=== PATIENT | female | born 1985 | race Caucasian/White ===

== ENCOUNTER 2019-12-06 12:47 | Outpatient (CLI) | payer SELFPAY ==
[2019-12-06 13:04] LABS: Basophils % 0.2 % (0.1-2.0); Eosinophils % 0.1 % (0.1-12.0); Hematocrit 35.3 % (37.0-47.0); Hemoglobin 12.3 g/dL (12.2-16.2); Lymphocytes # 1.2 K/mm3 (0.7-4.5); Lymphocytes % 10.9 % (10-50); Mean Corpuscular HGB Conc 34.9 g/dL (31.8-35.4); Mean Corpuscular Hemoglobin 30.2 pg (27.0-31.2); Mean Corpuscular Volume 86.7 fl (81-99); Mean Platelet Volume 8.6 fl (7.4-10.4); Monocytes # 0.5 K/mm3 (0.1-1.0); Monocytes % 4.4 % (1.7-9.3); Neutrophils # 9.5 K/mm3 (1.8-7.8); Neutrophils % 84.4 % (37.0-80.0); Platelet Count 199 K/mm3 (142-424); Red Blood Count 4.08 M/mm3 (4.20-5.40); Red Cell Distribution Width 15.1 % (11.5-17.5); White Blood Count 11.3 K/mm3 (4.8-10.8)
[2019-12-06 14:34] VITALS: BP 133/81; PULSE 88; RESP 18; TEMP 36.8; O2SAT 99
[2019-12-06 15:05] VITALS: BP 127/76; PULSE 82; RESP 16; TEMP 36.8; O2SAT 100
== END 2019-12-06 15:08 | disposition home or self-care (01) ==
LOC: LAB 12:47 → INF 14:03
PROVIDERS: Visit Provider Obstetrics & Gynecology
DX: Z34.90 Encounter for supervision of normal pregnancy, unspecified, unspecified trimester (principal)
CPT/HCPCS: 36415; 85025; 96372; J2790

== ENCOUNTER 2020-01-04 22:59 | Inpatient (IN) ==
[2020-01-04 23:39] LABS: Basophils % 0.1 % (0.1-2.0); Eosinophils # 0.1 K/mm3 (0.0-0.4); Eosinophils % 0.4 % (0.1-12.0); Hematocrit 32.6 % (37.0-47.0); Hemoglobin 11.2 g/dL (12.2-16.2); Lymphocytes # 2.1 K/mm3 (0.7-4.5); Lymphocytes % 16.1 % (10-50); Mean Corpuscular HGB Conc 34.4 g/dL (31.8-35.4); Mean Corpuscular Volume 88.8 fl (81-99); Mean Platelet Volume 8.3 fl (7.4-10.4); Monocytes # 0.8 K/mm3 (0.1-1.0); Monocytes % 6.4 % (1.7-9.3); Neutrophils # 9.8 K/mm3 (1.8-7.8); Platelet Count 194 K/mm3 (142-424); Red Blood Count 3.67 M/mm3 (4.20-5.40); Red Cell Distribution Width 14.8 % (11.5-17.5); White Blood Count 12.8 K/mm3 (4.8-10.8)
[2020-01-04 23:48] LABS: Anion Gap 10.8 mEq/L (5-15); Calcium 8.7 mg/dl (8.4-10.2)
--- NOTE | 2020-01-05 | History & Physical Report ---
OB - H&P: HPI Antepartum - History of Present Illness Chief complaint: Vaginal bleeding and contractions History of present illness: She is a 34-year-old 7 para 6 who is approximately 19-1/2 weeks gestational age. She has had minimal care. She has had bleeding for a number of weeks and tonight passed a clot. I did an ultrasound and there is no fluid around the baby. The baby is in the breech presentation. On examination there is some blood in the vagina and her cervix is 3 cm 90% effaced. I can feel parts. I suspect that she has ruptured her membranes at some point in time and is now in active labor. We will give her fluids but I suspect she is going to go into labor and deliver this baby. [facility] History I have reviewed the patient's past medical history: Yes *Have you ever received a pneumonia vaccine?: No *Have you received a flu vaccine this season?: No - *Social History Smoking Status: Never smoker Alcohol Intake: never Substance Use Type: denies use *Occupational Status:: other *Travel in the last 8 weeks: None Family Hx:: No significant family history Review of Systems - Review of Systems Review of systems:: pertinent systems reviewed and negative unless documented below Meds Home Medications Medication Instructions Recorded Confirmed Type Vit No.129/Iron/Folic 1 each PO DAILY 12/06/19 12/06/19 History [ One Daily Tablet] Allergies Allergy/AdvReac Type Severity Reaction Status Date / Time No Known Allergies Allergy Verified 12/06/19 14:21 OB - H&P: Exam - Constitutional no acute distress - Routine HEENT Exam Head: Present: normocephalic Eye: Present: EOMI, PERRL ENT: Present: mucous membranes moist - Routine Neck Exam Present: supple, full ROM - Routine Respiratory Exam Absent: accessory muscle use (good air entry bilaterally), respiratory distress, wheezes, crackles - Routine Cardiovascular Exam Present: RRR. Absent: murmur - Routine Abdominal Exam Present: soft, normoactive bowel sounds. Absent: tenderness, distended, guarding - Routine Rectal Exam Patient deferred: visual exam, digital exam - Routine Exam Patient deferred: external exam, groin exam, perineal exam - Routine Extremities Exam Present: full ROM. Absent: cyanosis, edema - Routine Skin Exam Present: intact. Absent: cyanosis - Routine Neurological Exam Present: alert, oriented X3 - Routine Psychiatric Exam Present: normal affect OB - Results - Labs Labs: Short CBC 01/04/20 Range/Units 23:25 WBC 12.8 H (4.8-10.8) K/mm3 Hgb 11.2 L (12.2-16.2) g/dL Hct 32.6 L (37.0-47.0) % Plt Count 194 (142-424) K/mm3 BMP 01/04/20 23:25 Sodium 131 L Potassium 3.8 Chloride 100 Carbon Dioxide 24 BUN 7 Creatinine 0.60 Glucose 78 Calcium 8.7 OB - A/P Antepartum (1) Vaginal bleeding affecting early Current visit: Yes Status: Acute (2) Breech presentation Current visit: Yes Status: Acute (3) Oligohydramnios due to rupture of membranes Current visit: Yes Status: Acute (4) labor in second trimester Current visit: Yes Status: Acute - Additional Plan Plan: expectant management Additional Information:: I examined her and she was 3 cm dilated 90% effaced. There are parts that I can feel just beyond the cervix. The fetus is in the breech presentation. Ultrasound revealed no fluid around the baby and I suspect she has rupture membranes. I suspect she will deliver in the next few hours. She has a moderate amount of blood likely from cervical changes.
[2020-01-05 00:20] LABS: Microscopic, Urine URINE MICROSCOPIC (MICROSCOPIC)
[2020-01-05 00:26] LABS: Appearance,Urine CLEAR (Clear); Bilirubin,Urine Negative (Negative); Blood, Urine 3+ (Negative); Color,Urine RED (Yellow); Glucose,Urine (UA) Negative (Negative); Ketones,Urine Negative (Negative); Leukocyte Esterase,Urine 2+ (Negative); Protein,Urine TRACE (Negative); Urobilinogen,Urine 0.2 EU/dl (0.2)
[2020-01-05 00:33] LABS: RBC,Urine 50-100 #/hpf (0-3); WBC,Urine 20-50 #/hpf (0-3)
[2020-01-05 00:35] LABS: Barbiturates Screen,Urine Negative ng/ml (<200); Benzodiazepines Screen,Urine Negative ng/ml (<200)
[2020-01-05 00:36] LABS: Amphetamine/Metha Screen,Urine Negative ng/ml (<1000)
[2020-01-05 00:37] LABS: Cannabinoid Screen,Urine Negative ng/ml (<50); Cocaine Screen,Urine Negative ng/ml (<300)
[2020-01-05 00:38] LABS: Methadone Screen,Urine Negative ng/ml (<300); Opiate Screen,Urine Negative ng/ml (<300)
[2020-01-05 00:39] LABS: Phencyclidine Screen,Urine Negative ng/ml (<25)
--- NOTE | 2020-01-05 01:15 | Procedure Note ---
- Delivery Note Delivery Date:: 01/05/20 Delivery Time:: 00:56 Anesthesia Type: None Was labor medically induced?: No Induction method: none Gestational age (weeks): 19 delivered prior to 39 weeks?: Yes Justification for early elective delivery:: Active Labor Infant Gender: Female at 1 minute: 0 at 5 minutes: 0 Delivery Procedure:: She is a 34-year-old 7 para 6 who was 19+ weeks gestational age. She came in with vaginal bleeding and was found to be 3 cm dilated 90% effaced. An ultrasound showed that the baby was in the breech presentation with oligohydramnios. There was absolutely no fluid around the baby. It is not clear whether she has had a small abruption or whether she had been leaking fluid. She rapidly progressed to full dilation and delivered spontaneously a stillborn female child at 12:56 AM on the morning of January 05, 2020. The baby was born within the sac and the baby and placenta delivered complete. There was no fluid around the sac. I opened the sac and was able to remove the baby from the sac. It appeared to be a normally formed female fetus and the size were consistent with dates. There were no perineal or vaginal lacerations. She has A Rh- blood and she will receive RhoGam prior to discharge. Her bleeding has been minimal. We will plan to discharge her in the morning. Placental Delivery Description: Spontaneous
--- NOTE | 2020-01-05 09:36 | Discharge Summary ---
General - General Admission date:: 01/04/20 Discharge date: 01/05/20 HPI HPI: She is a 34-year-old 7 para 6 who was having bleeding. She was found to be in the breech presentation and there was absolute oligohydramnios. Hospital Course Hospital Course: She was having contractions and had absolute oligohydramnios. She passed a stillborn 19-week fetus. The fetus was completely enclosed within the amniotic sac and came out intact with the placenta. I suspect she had an abruption. I suspect that this was chronic and ongoing since there was no fluid. She has done well and has received RhoGam for her Rh- status. She is eating and drinking and ambulating. She denies any excess bleeding. She is discharged home to follow-up in approximately 4 weeks time. She will continue with her vitamins. Her condition on discharge is stable. Rhogam Administration: Given Objective Vital signs: Temp Pulse Resp BP Pulse Ox 98.8 F 90 24 110/62 97 01/05/20 07:47 01/05/20 07:47 01/05/20 07:47 01/05/20 07:47 01/05/20 07:47 no acute distress - *Routine HEENT Exam Head: Present: normocephalic Eye: Present: EOMI, PERRL ENT: Present: mucous membranes moist Results Labs on day of discharge: Labs from last 24 hours 01/05/20 01/05/20 01/05/20 02:55 01:50 01:50 WBC RBC Hgb Hct MCV MCH MCHC RDW Plt Count MPV Neut % (Auto) Lymph % (Auto) Walton % (Auto) Eos % (Auto) Baso % (Auto) Neut # (Auto) Lymph # (Auto) Walton # (Auto) Eos # (Auto) Baso # (Auto) Sodium Potassium Chloride Carbon Dioxide Anion Gap BUN Creatinine Estimated Creat Clear Estimated GFR Est GFR ( Amer) Glucose Calcium Urine Color Urine Appearance Urine pH Ur Specific Bradley Urine Protein Urine Glucose (UA) Urine Ketones Urine Blood Urine Nitrate Urine Bilirubin Urine Urobilinogen Ur Leukocyte Esterase Urine RBC Urine WBC Ur Squamous Epith Cells Urine Opiates Screen Urine Methadone Screen Ur Barbituates Screen Ur Phencyclidine Scrn Ur Amphetamines Screen U Benzodiazepines Scrn Urine Cocaine Screen U Marijuana (THC) Screen Blood Type A Negative Antibody Screen Positive Antibody Identification Pending Screen Negative Baby's Rh Status Unknown Rhogam Infusion Rhogam release 01/05/20 01/05/20 01/04/20 00:03 00:03 23:25 WBC RBC Hgb Hct MCV MCH MCHC RDW Plt Count MPV Neut % (Auto) Lymph % (Auto) Walton % (Auto) Eos % (Auto) Baso % (Auto) Neut # (Auto) Lymph # (Auto) Walton # (Auto) Eos # (Auto) Baso # (Auto) Sodium Potassium Chloride Carbon Dioxide Anion Gap BUN Creatinine Estimated Creat Clear Estimated GFR Est GFR ( Amer) Glucose Calcium Urine Color Red Urine Appearance Clear Urine pH 7.0 Ur Specific Bradley 1.010 Urine Protein Trace Urine Glucose (UA) Negative Urine Ketones Negative Urine Blood 3+ Urine Nitrate Negative Urine Bilirubin Negative Urine Urobilinogen 0.2 Ur Leukocyte Esterase 2+ A Urine RBC 50-100 Urine WBC 20-50 Ur Squamous Epith Cells 5-10 Urine Opiates Screen Negative Urine Methadone Screen Negative Ur Barbituates Screen Negative Ur Phencyclidine Scrn Negative Ur Amphetamines Screen Negative U Benzodiazepines Scrn Negative Urine Cocaine Screen Negative U Marijuana (THC) Screen Negative Blood Type Antibody Screen Antibody Identification Pending Screen Baby's Rh Status Rhogam Infusion 01/04/20 01/04/20 01/04/20 23:25 23:25 23:25 WBC 12.8 H RBC 3.67 L Hgb 11.2 L Hct 32.6 L MCV 88.8 MCH 30.5 MCHC 34.4 RDW 14.8 Plt Count 194 MPV 8.3 Neut % (Auto) 77.0 Lymph % (Auto) 16.1 Walton % (Auto) 6.4 Eos % (Auto) 0.4 Baso % (Auto) 0.1 Neut # (Auto) 9.8 H Lymph # (Auto) 2.1 Walton # (Auto) 0.8 Eos # (Auto) 0.1 Baso # (Auto) 0.0 Sodium 131 L Potassium 3.8 Chloride 100 Carbon Dioxide 24 Anion Gap 10.8 BUN 7 Creatinine 0.60 Estimated Creat Clear 135 Estimated GFR 114 Est GFR ( Amer) 138 Glucose 78 Calcium 8.7 Urine Color Urine Appearance Urine pH Ur Specific Bradley Urine Protein Urine Glucose (UA) Urine Ketones Urine Blood Urine Nitrate Urine Bilirubin Urine Urobilinogen Ur Leukocyte Esterase Urine RBC Urine WBC Ur Squamous Epith Cells Urine Opiates Screen Urine Methadone Screen Ur Barbituates Screen Ur Phencyclidine Scrn Ur Amphetamines Screen U Benzodiazepines Scrn Urine Cocaine Screen U Marijuana (THC) Screen Blood Type A Negative Antibody Screen Positive Antibody Identification Screen Baby's Rh Status Rhogam Infusion DS: Diagnosis - Discharge Diagnosis (1) Vaginal bleeding affecting early Status: Acute (2) Breech presentation Status: Acute (3) Oligohydramnios due to rupture of membranes Status: Acute (4) labor in second trimester Status: Acute Discharge Plan - Patient Discharge Instructions ACTIVITY: Ambulate as tolerated DIET: continue same diet - Follow up Plan Disposition: Home, Self-[facility] Medications: Home Medications Medication Instructions Recorded Confirmed Type Vit No.129/Iron/Folic 1 each PO DAILY 12/06/19 01/05/20 History [ One Daily Tablet] Prescriptions/Medication Reconciliation: Continued Vit No.129/Iron/Folic [ One Daily Tablet] 1 each PO DAILY - Problem Reconciliation Problems Reviewed?: Yes
== END 2020-01-05 10:04 | disposition home or self-care (01) | DRG 779 ==
LOC: OBOUT 22:59 → OB 23:03
PROVIDERS: ADMIT Nurse Practitioner Obstetrics & Gynecology; ATTEND Nurse Practitioner Obstetrics & Gynecology
CPT/HCPCS: J2790